=== PATIENT | male | born 2000 | race Hispanic/Latino ===

== ENCOUNTER → 2019-03-11 | Outpatient (CLI) | payer SELFPAY ==
--- NOTE | 2019-03-11 17:41 | Diagnostic Imaging Report ---
CT LUMBAR SPINE WO HISTORY: Trauma, severe mid back pain COMPARISON: None. TECHNIQUE: Axial CT images of the lumbar spine were obtained without contrast. Coronal and sagittal reconstructions obtained from the axial data. One or more of the following dose reduction techniques were used: Automated exposure control, adjustment of the mA and/or kV according to patient size, and/or utilization of iterative reconstruction technique. DISCUSSION: There are 5 nonrib-bearing lumbar vertebral bodies. L5 is sacralized with a right pseudoarthrosis. Lumbar lordosis is preserved. There is no significant scoliosis or subluxation. No fracture, compression deformity, or destructive osseous lesion is seen. No gross spinal canal mass is seen. The paravertebral and paraspinal soft tissues are unremarkable. Mild multilevel spondylosis is present with multilevel small Schmorl's nodes. No gross canal or foraminal stenosis is seen. Mild bilateral sacroiliac degenerative changes are present well. IMPRESSION: 1. No acute osseous abnormalities in the lumbar spine. 2. Mild multilevel spondylosis. No gross canal or foraminal stenosis. Findings discussed with Dr. Hernandez at 5:37 PM on 03/11/2019 (by Dr. Dupont). Signed by: Dr. Von Dupont M.D. on 03/11/2019 5:37 PM
== END ==
LOC: CT 16:53
PROVIDERS: ATTEND Family Medicine
DX: M54.5 Low back pain (principal)
CPT/HCPCS: 72131